=== PATIENT | male | born 1995 | race Caucasian/White ===

== ENCOUNTER 2023-06-03 07:53 | Day surgery (SDC) | payer OTHER ==
[~2023-06-03] VITALS: Ht 165.1 cm; Wt 132.4 kg
[~2023-06-03 07:53] MED LIST: ALBUTEROL2.5 MG/0.5 INH; ALLEGRA60 MG PO; FLOVENT DISKU100 MCG INH; IBLOOD GLUCOSE TEST STRIP 1 EA TEST VI PRN; IBUPROFEN600 MG PO; LACTATED RINGER'S 1,000 ML IV SCH; LIDOCAINE HCL 1% 5 ML SDV INJ ONE; MIDAZOLAM HCL 5 MG/5 ML VIAL IV PRN; MULTI VITAMIN1 EACH PO; NORCO 10-325 T1 EACH PO; SERTRALINE HCL25 MG PO; ULTRAM50 MG PO; VITAMIN D-32000 UNIT PO; ZOFRAN ODT4 MG SL; fentaNYL citrate 100 MCG/2 ML VIAL IV PRN
[2023-06-03] MEDS ORDERED: OMEPRAZOLE20 MG PO (08:22)
[2023-06-03] MEDS ORDERED: IRON325 M1 PO (08:22)
[2023-06-03 08:23] VITALS: BP 129/69
[2023-06-03] MEDS ORDERED: propofoL 200 MG/20 ML VIAL ONE (08:37)
[2023-06-03] MEDS ORDERED: LIDOCAINE HCL 2% 5 ML SDV ONE (08:37)
[2023-06-03] MEDS ORDERED: fentaNYL citrate 100 MCG/2 ML VIAL ONE (08:43)
[2023-06-03] MEDS ORDERED: MIDAZOLAM HCL 5 MG/5 ML VIAL ONE (08:43)
[2023-06-03] MEDS ORDERED: MIDAZOLAM HCL 2 MG/2 ML VIAL ONE (09:20)
--- NOTE | 2023-06-03 09:50 | NUR ---
06/03/23 0950 Sheets,Trice 0935 PT ARRIVED TO PACU ON 2L VIA NC, PT AWAKES TO TACTILE STIMULI AND DENEIS CONCERNS AND IS ENCOURAGED TO PASS GAS. PT EASILY FALLS BACK TO SLEEP. VSS.
[2023-06-03 10:24] VITALS: BP 123/71
--- NOTE | 2023-06-03 12:35 | OR ---
[facility] [address] [place], [place] [address] Signed DATE OF OPERATION: 06/03/2023 SURGEON: Charles Mendes MD PREOPERATIVE DIAGNOSES: 1. Generalized abdominal pain and diarrhea after eating. 2. Father with a history of irritable bowel syndrome following [place]. 3. Paternal grandfather with Crohn's disease. POSTOPERATIVE DIAGNOSIS: Unremarkable colonoscopy. PROCEDURES: Colonoscopy with random cold biopsies in the right colon, transverse colon, left colon, sigmoid colon and rectum. ESTIMATED BLOOD LOSS: None. INDICATIONS: Fatuma is a 27-year-old obese gentleman, asked to see me for a colonoscopy. He has been working with his primary care provider. He has generalized abdominal pain and often diarrhea after eating for many years. In fact, he underwent a colonoscopy around 2017 at the age of 20 [address] Sanchez for the same issues. He told me that was negative. He has tried Imodium, omeprazole, and Tums. He has been trying to lose weight, but his insurance company will not cover Wegovy. He was given dicyclomine, but I do not believe he has tried it yet. He said he quit smoking. He said he rarely drinks anymore. He still likes to chew tobacco a little bit and sometimes uses pouches. He told me his father had irritable bowel syndrome after being in [place] back in the . His paternal grandfather had Crohn's disease. No family history of colon cancer or colon polyps. 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 He said it is very stressful. He said it often bothers his stomach. In the office, I had given him a pamphlet on colonoscopy. He recalls the nature of the test. There is risk including, but not limited to gas bloating, crampy abdominal pain, bleeding, perforation requiring surgery, and missed diagnosis. We also reviewed the written instructions for bowel prep line by line. He also understands the need for IV conscious sedation. He had expressed understanding and would like to proceed. DESCRIPTION OF PROCEDURE: Fatuma was taken into our endoscopy suite and placed in the left lateral decubitus Electronically Signed By: CHARLES MENDES MD 06/03/23 1235 PATIENT NAME: FATUMA SALAMANCA OPERATIVE REPORT DATE OF : [birth year] REPORT #: [id number] PHYSICIAN: CHARLES MENDES MD PCP: TEREZA RAMIREZ PA-C REPORT IS CONFIDENTIAL AND NOT TO BE RELEASED WITHOUT AUTHORIZATION [facility] [address] [place] [id number] Signed position. Fatuma was given 150 mcg of fentanyl and 11 mg of Versed throughout the case. He was frequently awake and moving around and following directions to some degree. Although, overall he seemed comfortable. A digital rectal exam was performed and he has good sphincter tone. No external hemorrhoids. I did not feel any masses. He is a large man, I could not reach his prostate gland. The adult colonoscope had been introduced and advanced under direct visualization of the camera. Overall, he is technically easy to scope, but he is young and he was awake frequently and intermittently throughout the procedure, so we went slow and added more Versed and fentanyl until we made our way into the cecum itself. We needed just a little bit of abdominal compression to get the scope directly into the cecum. His prep was good. We could easily see the appendiceal orifice and the ileocecal valve. We tried several times to turn the scope into the terminal ileum, but he was awake enough that he was not tolerating that. Therefore, we slowly withdrew the scope. We did not see any inflammatory changes throughout his entire colon or rectum. There were no polyps. There was no diverticulosis. We took biopsies in the right colon, transverse colon, left colon, sigmoid colon and rectum for pathologic review. Upon retroflexion of the scope, we did not see any additional pathology above the anal canal. After this, the gas was suctioned out and the colonoscope removed. Fatuma overall tolerated the procedure well. RECOMMENDATIONS: I will see Fatuma back in my office in 7 to 14 days to review his results. He might consider monitored anesthesia care in the future for better comfort and certainly if one wants to turn the camera up into the terminal ilium. Charles Mendes MD ALB/MODL /[id number] cc: SUE Abdi MD Electronically Signed By: CHARLES MENDES MD 06/03/23 1235 PATIENT NAME: FATUMA SALAMANCA OPERATIVE REPORT DATE OF : [birth year] REPORT #: [id number] PHYSICIAN: CHARLES MENDES MD PCP: TEREZA RAMIREZ PA-C REPORT IS CONFIDENTIAL AND NOT TO BE RELEASED WITHOUT AUTHORIZATION [address] [place], [place] [address] Signed Copies: CHARLES MENDES MD ~ Electronically Signed By: CHARLES MENDES MD 06/03/23 1235 PATIENT NAME: SALAMANCAFATUMABRIELLE MONTES OPERATIVE REPORT DATE OF : [birth year] REPORT #: [id number] PHYSICIAN: CHARLES MENDES MD PCP: TEREZA RAMIREZ PA-C REPORT IS CONFIDENTIAL AND NOT TO BE RELEASED WITHOUT AUTHORIZATION
--- NOTE | 2023-06-07 11:13 | PATH ---
[facility] [address] [facility] [place], [place] [address] Signed SPECIMEN(S): A ASCENDING/RIGHT COLON BIOPSY SPECIMEN(S): B TRANSVERSE COLON BIOPSY SPECIMEN(S): C DESCENDING/LEFT COLON BIOPSY SPECIMEN(S): D SIGMOID COLON BIOPSY SPECIMEN(S): E RECTUM BIOPSY SPECIMEN SOURCE: A. ASCENDING/RIGHT COLON BIOPSY B. TRANSVERSE COLON BIOPSY C. DESCENDING/LEFT COLON BIOPSY D. SIGMOID COLON BIOPSY E. RECTUM BIOPSY CLINICAL HISTORY: Diarrhea, unremarkable colon FINAL PATHOLOGIC DIAGNOSIS: A. Ascending/right colon biopsy: - Colonic mucosa with no significant pathologic abnormalities. - Negative for inflammation or dysplasia. B. Transverse colon biopsy: - Colonic mucosa with no significant pathologic abnormalities. - Negative for inflammation or dysplasia. C. Descending/left colon biopsy: - Colonic mucosa with no significant pathologic abnormalities. - Negative for inflammation or dysplasia. D. Sigmoid colon biopsy: - Colonic mucosa with reactive changes and focal fibrosis. See comment. - Negative for chronic active inflammation or dysplasia. E. Rectum biopsy: - Colonic mucosa with reactive changes and focal fibrosis. See comment. - Negative for chronic active inflammation or dysplasia. COMMENT: COMMENT: The sigmoid colon and rectal biopsies show focal areas with surface epithelium damage and thickened subepithelial plate as confirmed by trichrome stain. This features could be seen in collagenous colitis. However, no significant inflammation is present . Clinical correlation is recommended. NA:clv PATIENT NAME: FATUMA QUINTEROS SIMON PATHOLOGY DATE OF : [birth year] REPORT #: [id number] PHYSICIAN: JACE ANTONY PCP: TEREZA RAMIREZ PA-C REPORT IS CONFIDENTIAL AND NOT TO BE RELEASED WITHOUT AUTHORIZATION [facility] [address] [place], [place] [address] Signed MICROSCOPIC EXAMINATION: Histologic sections of all submitted blocks are examined by light microscopy. These findings, together with the gross examination, support the pathologic diagnosis. A Trichrome stain is performed on blocks C, D and E (with appropriately reactive control) and it shows focal areas with thickened subepithelial plate in D and E, supporting the diagnosis. GROSS DESCRIPTION: A. The specimen, labeled and designated "Quinteros, ascending/right colon biopsy," is received in formalin and consists of one ontiveros soft tissue fragment, 0.3 cm. Entirely submitted in (A1). B. The specimen, labeled and designated "Quinteros, transverse colon biopsy," is received in formalin and consists of one ontiveros soft tissue fragment, 0.6 cm. Entirely submitted in (B1). C. The specimen, labeled and designated "Quinteros, descending/left colon biopsy," is received in formalin and consists of one ontiveros soft tissue fragment, 0.8 cm. Entirely submitted in (C1). D. The specimen, labeled and designated "Quinteros, sigmoid colon biopsy," is received in formalin and consists of one ontiveros soft tissue fragment, 1.0 cm. Entirely submitted in (D1). E. The specimen, labeled and designated "Quinteros, rectum biopsy," is received in formalin and consists of one ontiveros soft tissue fragment, 0.5 cm. Entirely submitted in (E1). VB (under the direct supervision of a pathologist) The Gross Description was prepared using a voice recognition system. The report was reviewed for accuracy; however, sound-alike word errors, addition and/or deletions may occur. If there is any question about this report, please contact Client Services. PERFORMING LABORATORY: Technical component was performed by [facility], [address] [place] [id number] (CLIA# [id number]). Professional interpretation was performed by [facility], [address] [place] [id number] (CLIA# [id number]). Diagnostician: Keith House MD Pathologist Electronically Signed 06/07/2023 PATIENT NAME: FATUMA QUINTEROS SIMON PATHOLOGY DATE OF : [birth year] REPORT #: [id number] PHYSICIAN: JACE PATHOLOGY PCP: TEREZA RAMIREZ PA-C REPORT IS CONFIDENTIAL AND NOT TO BE RELEASED WITHOUT AUTHORIZATION [facility] [address] [place] [id number] Signed Copies: ~ PATIENT NAME: FATUMA QUINTEROS SIMON PATHOLOGY DATE OF : [birth year] REPORT #: [id number] PHYSICIAN: JACE PATHOLOGY PCP: TEREZA RAMIREZ PA-C REPORT IS CONFIDENTIAL AND NOT TO BE RELEASED WITHOUT AUTHORIZATION
== END 2023-06-03 10:40 | disposition home or self-care (01) ==
LOC: DS 07:53
PROVIDERS: ATTEND Colon & Rectal Surgery
PROC: 0DBL8ZX Excision of Transverse Colon, Via Natural or Artificial Opening Endoscopic, Diagnostic (ICD-10-PCS; 2023-06-03)
PROC: 0DBN8ZX Excision of Sigmoid Colon, Via Natural or Artificial Opening Endoscopic, Diagnostic (ICD-10-PCS; 2023-06-03)
PROC: 0DBP8ZX Excision of Rectum, Via Natural or Artificial Opening Endoscopic, Diagnostic (ICD-10-PCS; 2023-06-03)
PROC: 0DBM8ZX Excision of Descending Colon, Via Natural or Artificial Opening Endoscopic, Diagnostic (ICD-10-PCS; 2023-06-03)
PROC: 0DBK8ZX Excision of Ascending Colon, Via Natural or Artificial Opening Endoscopic, Diagnostic (ICD-10-PCS; principal; 2023-06-03 09:10)
DX: R10.84 Generalized abdominal pain (principal); E66.9 Obesity, unspecified; Z68.42 Body mass index [BMI] 45.0-49.9, adult; K21.9 Gastro-esophageal reflux disease without esophagitis; E78.5 Hyperlipidemia, unspecified; F32.A Depression, unspecified; K58.9 Irritable bowel syndrome, unspecified; J45.909 Unspecified asthma, uncomplicated; K76.0 Fatty (change of) liver, not elsewhere classified
CPT/HCPCS: 99153; G0500; J2001; J2250; J2704; J3010; J7121